=== PATIENT | female | born 1995 | race African-American/Black ===

== ENCOUNTER 2020-11-09 13:57 | Emergency (ER) | payer OTHER ==
[~2020-11-09] VITALS: Ht 167.6 cm; Wt 70.0 kg
[2020-11-09 14:43] LABS: BASOPHILS % 0.3 % (0.0-2.0); EOSINOPHILS % 11.2 % (0.0-5.0); HEMATOCRIT. 43.3 % (36.0-48.0); MEAN CORPUSCULAR HEMOGLOBIN 29.6 pg (28.0-32.0); MEAN CORPUSCULAR VOLUME 85.7 fL (81.0-99.0); MONOCYTES % 7.5 % (2.0-8.0); PLATELET 295 x1000/uL (130-400); RED BLOOD CELL COUNT 5.05 mill/uL (4.2-5.4); RED CELL DISTRIBUTION WIDTH 13.5 % (11.6-14.6)
[2020-11-09 14:51] LABS: CHLORIDE 104 mEq/L (98-107)
[2020-11-09 14:53] LABS: CLARITY URINE CLEAR (CLEAR); COLOR URINE YELLOW (YELLOW); KETONES URINE NEGATIVE (NEGATIVE); LEUKOCYTE ESTERASE URINE NEGATIVE (NEGATIVE); NITRITE URINE NEGATIVE (NEGATIVE); OCCULT BLOOD URINE NEGATIVE (NEGATIVE); PROTEIN URINE NEGATIVE (NEGATIVE); SPECIFIC GRAVITY URINE 1.018 (1.005-1.030); UROBILINOGEN URINE 0.2 E.U./dL (0.2-1.0)
[2020-11-09 14:58] LABS: HCG SCREEN NEGATIVE
[2020-11-09] MEDS ORDERED: NAPR500T7 MT (16:34)
[2020-11-09 16:42] VITALS: BP 124/76
== END 2020-11-09 16:52 | disposition home or self-care (01) ==
LOC: ER 13:57
DX: R10.2 Pelvic and perineal pain (principal); R19.7 Diarrhea, unspecified; F17.200 Nicotine dependence, unspecified, uncomplicated; Z79.899 Other long term (current) drug therapy
CPT/HCPCS: 36415; 80053; 81003; 81025; 84703; 85025; 99283

== ENCOUNTER 2021-10-05 06:05 | Emergency (ER) | payer MEDICAID ==
[~2021-10-05] VITALS: Ht 172.7 cm; Wt 71.8 kg
[~2021-10-05 06:05] MED LIST: NAPR500T7 MT
[2021-10-05] MEDS ORDERED: SODIUM CHLORIDE 0.9% 1,000 ML IV ONE (06:30)
[2021-10-05 06:50] LABS: BASOPHILS % 0.5 % (0.0-2.0); EOSINOPHILS % 2.1 % (0.0-5.0); HEMATOCRIT. 39.9 % (36.0-48.0); HEMOGLOBIN. 13.1 g/dL (12.0-16.0); LYMPHOCYTES % 17.2 % (20.0-50.0); MEAN CORPUSCULAR HEMOGLOBIN 26.4 pg (28.0-32.0); MEAN CORPUSCULAR VOLUME 80.1 fL (81.0-99.0); MEAN PLATELET VOLUME 8.7 fl (7.4-10.4); NEUTROPHILS % 73.2 % (40.0-76.0); PLATELET 312 x1000/uL (130-400); RED BLOOD CELL COUNT 4.97 mill/uL (4.2-5.4); RED CELL DISTRIBUTION WIDTH 14.2 % (11.6-14.6)
[2021-10-05 07:09] LABS: CHLORIDE 101 mEq/L (98-107)
[2021-10-05 07:18] LABS: HCG SCREEN NEGATIVE
[2021-10-05 12:31] LABS: CLARITY URINE CLEAR (CLEAR); COLOR URINE YELLOW (YELLOW); KETONES URINE 3+ (NEGATIVE); LEUKOCYTE ESTERASE URINE 1+ (NEGATIVE); NITRITE URINE NEGATIVE (NEGATIVE); OCCULT BLOOD URINE 3+ (NEGATIVE); PROTEIN URINE 1+ (NEGATIVE); SPECIFIC GRAVITY URINE 1.026 (1.005-1.030)
[2021-10-05] MEDS ORDERED: CEPH500C2 MT (13:24)
[2021-10-05 13:44] VITALS: BP 132/87
[2021-10-05] MEDS ORDERED: IOHEXOL-300 100 ML BOTTLE ONE (14:30)
== END 2021-10-05 13:46 | disposition home or self-care (01) ==
LOC: ER 06:28
DX: N39.0 Urinary tract infection, site not specified (principal); K62.5 Hemorrhage of anus and rectum
CPT/HCPCS: 36415; 74177; 80053; 81003; 84703; 85025; 93005; 96360; 96361; 99285; J7030; Q9967

== ENCOUNTER 2023-09-03 19:12 | Emergency (ER) | payer MEDICAID, OTHER ==
[~2023-09-03] VITALS: Ht 170.2 cm; Wt 55.4 kg
[~2023-09-03 19:12] MED LIST changes: +CEPH500C2 MT
[2023-09-03 20:41] VITALS: TEMP 98; O2SAT 100
[2023-09-03 21:28] LABS: CLARITY URINE CLEAR (CLEAR); COLOR URINE YELLOW (YELLOW); GLUCOSE URINE NEGATIVE (NEGATIVE); KETONES URINE NEGATIVE (NEGATIVE); LEUKOCYTE ESTERASE URINE TRACE (NEGATIVE); NITRITE URINE NEGATIVE (NEGATIVE); OCCULT BLOOD URINE NEGATIVE (NEGATIVE); PH URINE 6.5 (4.5-8.0); PROTEIN URINE NEGATIVE (NEGATIVE); SPECIFIC GRAVITY URINE 1.003 (1.005-1.030); UROBILINOGEN URINE 0.2 E.U./dL (0.2-1.0)
[2023-09-03 21:46] LABS: BACTERIA URINE TRACE; SQUAMOUS EPITHELIAL CELL URINE FEW /lpf (RARE/1+)
[2023-09-03 21:47] LABS: RBC URINE 0-2 /hpf (0-2); WBC URINE 0-2 /hpf (0-2)
[2023-09-03 23:15] LABS: BASOPHILS % 0.6 % (0.0-2.0); EOSINOPHILS % 8.8 % (0.0-5.0); HEMATOCRIT. 27.1 % (36.0-48.0); HEMOGLOBIN. 8.1 g/dL (12.0-16.0); MEAN CORPUSCULAR HEMOGLOBIN 17.6 pg (28.0-32.0); MEAN CORPUSCULAR HGB CONC 29.7 g/dL (31.0-37.0); MEAN CORPUSCULAR VOLUME 59.3 fL (81.0-99.0); MEAN PLATELET VOLUME 8.1 fl (7.4-10.4); MONOCYTES % 4.7 % (2.0-8.0); NEUTROPHILS % 53.9 % (40.0-76.0); PLATELET 546 x1000/uL (130-400); RED BLOOD CELL COUNT 4.58 mill/uL (4.2-5.4); RED CELL DISTRIBUTION WIDTH 17.8 % (11.6-14.6); WHITE BLOOD COUNT 9.1 x1000/uL (4.5-11.0)
[2023-09-03 23:16] LABS: ADD RBC MORPHOLOGY YES; DIFFERENTIAL COMMENT 1
[2023-09-03 23:35] LABS: ALANINE AMINOTRANSFERASE < 7 IU/L (10-49); ALBUMIN 3.5 g/dL (3.2-4.8); ASPARTATE AMINOTRANSFERASE 12 IU/L (<34); BILIRUBIN TOTAL 0.3 mg/dL (0.1-1.0); CALCIUM 8.4 mg/dL (8.7-10.4); CARBON DIOXIDE 26 mEq/L (21-32); CHLORIDE 102 mEq/L (98-107); CREATININE 0.6 mg/dL (0.6-1.0); GLUCOSE 109 mg/dL (70-105); PROTEIN TOTAL 7.7 g/dL (6.0-8.3); SODIUM 134 mEq/L (136-145)
[2023-09-03 23:38] LABS: HYPOCHROMASIA 1+; MICROCYTOSIS 1+; PLATELET ESTIMATE INCREASED
[2023-09-03 23:59] LABS: UREA NITROGEN BLOOD < 5 mg/dL (9-23)
[2023-09-04 00:32] VITALS: BP 119/68; PULSE 88; RESP 18
[2023-09-04] MEDS: POTASSIUM CHLORIDE 20MEQ/PACKET PO ONE (00:32)
[2023-09-04] MEDS: KETOROLAC 15MG/ML VIAL IM ONE (00:32)
[2023-09-04] MEDS ORDERED: P50 MT (01:04)
== END 2023-09-04 01:44 | disposition home or self-care (01) ==
LOC: ER 19:41
DX: K51.90 Ulcerative colitis, unspecified, without complications (principal); R19.7 Diarrhea, unspecified
CPT/HCPCS: 80053; 81003; 81025; 83690; 85025; 36415; 99283; 96372; J1885; Z7610